=== PATIENT | female | born 1985 | race Caucasian/White ===

== ENCOUNTER 2017-09-25 17:52 | Emergency (ER) | payer MEDICAID, OTHER ==
[~2017-09-25] VITALS: Ht 154.9 cm; Wt 63.5 kg
[~2017-09-25 17:52] MED LIST: ABIL5 PO
[2017-09-25 20:33] VITALS: BP 116/74
== END 2017-09-25 22:50 | disposition home or self-care (01) ==
LOC: ER 17:53
DX: Z76.0 Encounter for issue of repeat prescription (principal); F33.9 Major depressive disorder, recurrent, unspecified; G47.00 Insomnia, unspecified; R03.0 Elevated blood-pressure reading, without diagnosis of hypertension
CPT/HCPCS: 81025; 99283